=== PATIENT | female | born 1975 | race Caucasian/White ===

== ENCOUNTER 2021-10-22 13:03 | Outpatient (REF) | payer OTHER, SELFPAY ==
--- NOTE | 2021-10-25 14:48 | MHC.AU.AEV ---
Adult Audiological Evaluation Date of Visit: 10/22/21 Logistics/Shipper Used: Citizen Of [place]- In Person Reason for Appointment: History of hearing loss since infancy. Per medical record, hearing loss is thought to be due to trauma. The right ear is worse than the left. Patient has used a hearing aid on her left ear in the past, but has not had any for about 5 years. She relies heavily on lip reading to aid in speech understanding. Ear History: Recent Ear Drainage: None Reported Recent Ear Pain: None Reported Recent Ear Infections: None Reported History of occupational noise exposure?: No History: No Medical History: Medical History: Asthma Otoscopy: Right Ear: Unremarkable Left Ear: Unremarkable Tympanometry: Tympanometry performed due to: To assess integrity of the middle ear system Right Ear: Reduced Middle Ear Compliance (Type As) Left Ear: Reduced Middle Ear Compliance (Type As) Hearing Evaluation: Transducer(s) Used: Insert Earphones Method: Conventional Audiometry Stimuli Used: Pure Tones Right Ear: Description of Hearing: Profound sensorineural hearing loss Left Ear: Description of Hearing: Severe to profound sensorineural hearing loss Speech Recognition Threshold (SRT): Method Used: Recorded Lists Stimuli Used: [place] Trisyllable Words Right Ear: Could not test Left Ear: 70 dBHL Word Discrimination: Method: Recorded Lists Word Lists Used:: Lista Bisil?bica (Citizen [place]) Right Ear: 0% at 110 dBHL Left Ear: 92% at 100 dBHL Recommendations: Audiological re-evaluation in one year. See Hearing Aid Evaluation report for more information. Diagnosis: Primary Diagnosis: H90.3 Bilateral Sensorineural Hearing Loss Signature: Provider: Dario Parish, LUIS-A
--- NOTE | 2021-10-25 14:49 | MHC.AU.HAS ---
Hearing Aid Evaluation Date of Visit: 10/22/21 Avionics Systems Technician Used: [place]- In Person Historical Information: Description of Hearing: Right: Profound sensorineural hearing loss, Left: Severe to profound sensorineural hearing loss Summary: Patient was seen for audiological evaluation (see separate report for details). History of hearing loss since infancy. She was using hearing aids up until about 5 years ago. She is very interested in obtaining a new pair of hearing aids. Options were discussed. She would like to try a Bi-CROS style, as she has never tried one before and would like greater awareness of sounds from her right side. She would also like to try a NATALEE with a cShell instead of the BTEs she has used in the past. Hearing Aid Prescription: Based on the individual?s shared listening needs, communication environments, dexterity, desire for connectivity, and personal preferences, the following prescription for amplification has been made: Right ear: [employer]: Phonak Model: CROS-P Battery Size: Rechargeable Color: Black Jackhammer Operator: 1 Type of Mold: CROS tip Left ear: [employer]: Phonak Model: Audeo P70-R Battery Size: Rechargeable Color: Black Jackhammer Operator: 1UP Type of Mold: cShell Action Taken/Action Needed: Earmold Impressions Taken. Medical Clearance to be requested from PCP/ENT. Hearing Instrument Fitting to be scheduled when materials arrive Primary Diagnosis: H90.3 Bilateral Sensorineural Hearing Loss Signature: Provider: Dario Parish, LUIS-A
--- NOTE | 2021-10-25 14:50 | MHC.AU.MED ---
Medical Clearance for Hearing Instrumentation Date: 10/25/21 Patient Name: Sonia Kearns Date of : 1975 Referring Provider: Vianey Castro CNP We have seen your patient on 10/25/21 and have determined that they are a candidate for amplification (See accompanying report). Specifically, they would benefit from: Hearing aid use in both ears There is a statute that addresses Medical Evaluation Requirements prior to fitting a patient with a hearing aid. According to [place] statute [facility] CMR:6.03(1), (a) General. Except as provided in 265 CMR 6.03(1)(b), a program/music director shall not sell a hearing aid unless the prospective user has presented to the program/music director a written statement signed by a licensed physician that states that the patient's hearing loss has been medically evaluated and the patient may be considered a candidate for a hearing aid. The medical evaluation must have taken place within the preceding six months. Please note: Due to the [place] Statute referenced above, we cannot accept a signature other than that of a licensed physician. PAYMENT SPECIALIST and PA signatures cannot be accepted. I am in agreement with the above recommendation. There is no medical contraindication for hearing instrumentation. Physician Signature Date Physician Name (Printed)
== END 2021-10-22 13:04 | disposition home or self-care (01) ==
LOC: HO.SH 13:03
PROVIDERS: Visit Provider Nurse Practitioner Family
DX: Z01.118 Encounter for examination of ears and hearing with other abnormal findings (principal); Z46.1 Encounter for fitting and adjustment of hearing aid; H90.3 Sensorineural hearing loss, bilateral
CPT/HCPCS: 92557; 92567; 92591; V5275

== ENCOUNTER 2022-01-21 13:19 | Outpatient (REF) | payer OTHER, SELFPAY ==
--- NOTE | 2022-01-21 14:57 | MHC.AU.HFA ---
Hearing Instrument Fitting- Adult- Binaural Date of Visit: 01/21/22 Marketing Database Consultant Used: [facility] [place] [facility] [place] Hearing Instruments Dispensed: Right Ear: Phonak CROS P-R SN: [id number] Color: Velvet Black Repair Warranty: 02/23/2025 Loss and Damage Warranty: 02/23/2025 Service Plan: 01/21/2023 Battery Size: Rechargeable Cane Flume Feeding Machine Operator: 1 Type of Mold: Acrylic slim tip Type of Wax Guard: CeruStop Left Ear: Phonak Audeo P70-R SN: [id number] Color: Velvet Black Repair Warranty: 02/23/2025 Loss and Damage Warranty: 02/23/2025 Service Plan: 01/21/2023 Battery Size: Rechargeable Cane Flume Feeding Machine Operator: 1 UP Type of Mold: cShell Type of Wax Guard: CeruStop Summary of Fitting: Feedback materials planning manager and real ear measurements were performed. Comfortable at real ear settings. Reviewed care, use, and rechargeability including manual on/off, volume control use, cleaning, and insertion/removal. Explained function and purpose of the CROS transmitter on the right ear. Sonia was grateful to have hearing aids again. Did not pair to cell phone at this time. Recommendations: Hearing Instrument maintenance in 6 months, or sooner if needed. Please call our clinic with any questions or concerns. Sonia will call to schedule a hearing aid follow up as she is reportedly having surgery this week. Diagnosis Code(s): Primary Diagnosis: H90.3 Bilateral Sensorineural Hearing Loss Signature: Provider: Mildred Burton, [facility]
== END 2022-01-21 13:20 | disposition home or self-care (01) ==
LOC: HO.HAP 13:19
PROVIDERS: Visit Provider Internal Medicine
DX: Z46.1 Encounter for fitting and adjustment of hearing aid (principal); H90.3 Sensorineural hearing loss, bilateral
CPT/HCPCS: V5011; V5020; V5221; V5240; V5264

== ENCOUNTER 2022-03-25 10:45 | Outpatient (REF) | payer OTHER, SELFPAY | END 2022-03-25 10:46 | disposition home or self-care (01) | LOC: HO.HAP 10:45 | PROVIDERS: Visit Provider Internal Medicine | DX: Z13.89 Encounter for screening for other disorder (principal) ==

== ENCOUNTER 2022-04-08 12:07 | Outpatient (REF) | payer SELFPAY | END 2022-04-08 12:08 | disposition home or self-care (01) | LOC: HO.HAP 12:07 | PROVIDERS: Visit Provider Internal Medicine | DX: Z13.89 Encounter for screening for other disorder (principal) ==